=== PATIENT | female | born 1965 | race Caucasian/White ===

== ENCOUNTER → 2016-09-18 | Outpatient (CLI) | payer BC | LOC: MC.RAD 07:00 | DX: Z12.31 Encounter for screening mammogram for malignant neoplasm of breast (principal); Z80.3 Family history of malignant neoplasm of breast ==

== ENCOUNTER 2017-11-28 13:31 | Emergency (ER) | payer BC ==
[2017-11-28 13:35] VITALS: TEMP 98.2
[2017-11-28] MEDS ORDERED: ZOVIRAX400 MG PO (13:45)
[2017-11-28] MEDS ORDERED: MENOSTAR1 EACH (13:45)
[2017-11-28] MEDS ORDERED: SYNTHROID0.1 MG/TAB PO (13:45)
[2017-11-28] MEDS ORDERED: XANAX 1MG1 MG PO (13:46)
[2017-11-28] MEDS ORDERED: ESTRACE0.5 MG PO (13:46)
[2017-11-28 14:14] LABS: BASO # 0.1 (0.0-0.2); BASO % 0.5 % (0.0-2.0); EOS # 0.1 (0.0-0.7); EOS % 1.4 % (0-4.0); GRAN # 6.1 (1.4-6.5); GRAN % 63.3 % (42.2-75.2); HEMATOCRIT 41.9 % (37.0-47.0); HEMOGLOBIN 14.7 g/dl (12.5-16.0); LYMPH # 2.5 (1.2-3.4); LYMPH % 25.3 % (20.0-51.0); MEAN CELL VOLUME 88 fl (80.0-100.0); MEAN CORPUSCULAR HEMOGLOBIN 31 pg (27.0-31.0); MEAN CORPUSCULAR HGB CONC 35 g/dl (33.0-37.0); MEAN PLATELET VOLUME 9.5 fl (7.4-10.4); MONO # 0.9 (0.1-0.6); MONO % 9.2 % (1.7-9.3); PLATELET COUNT 316 K/mm3 (130-400); RED BLOOD COUNT 4.78 M/mm3 (4.10-5.30); REDCELL DISTRIBUTION WIDTH-CV 12.1 % (11.5-14.5)
[2017-11-28 14:25] LABS: BILIRUBIN,TOTAL 0.3 mg/dL (0.0-1.0); CALCIUM 9.3 mg/dL (8.4-10.2); CREATININE, serum 0.67 mg/dL (0.52-1.25); POTASSIUM 3.9 mmol/L (3.4-5.0); TOTAL PROTEIN 7.6 gm/dL (6.4-8.2)
[2017-11-28 14:55] LABS: THYROID STIMULATING HORMONE 0.799 uIU/mL (0.465-4.680)
[2017-11-28 15:43] VITALS: BP 124/88; PULSE 80
== END 2017-11-28 15:43 | disposition home or self-care (01) ==
LOC: COL.ER 13:31
PROVIDERS: Emergency Medicine
DX: I47.1 Supraventricular tachycardia (principal)
CPT/HCPCS: J0153; J7030

== ENCOUNTER → 2018-03-29 | Outpatient (CLI) | payer BC ==
[~2018-03-29] MED LIST: ESTRACE0.5 MG PO; MENOSTAR1 EACH; SYNTHROID0.1 MG/TAB PO; XANAX 1MG1 MG PO; ZOVIRAX400 MG PO
== END ==
LOC: MC.RAD 16:32
DX: Z12.31 Encounter for screening mammogram for malignant neoplasm of breast (principal)

== ENCOUNTER 2018-05-08 11:11 | Emergency (ER) | payer BC ==
[2018-05-08 11:11] VITALS: TEMP 98
[2018-05-08 11:27] LABS: BASO # 0.1 (0.0-0.2); BASO % 0.5 % (0.0-2.0); EOS # 0.3 (0.0-0.7); GRAN # 8.1 (1.4-6.5); GRAN % 63.6 % (42.2-75.2); HEMATOCRIT 44.4 % (37.0-47.0); HEMOGLOBIN 15.6 g/dl (12.5-16.0); LYMPH # 3.4 (1.2-3.4); MEAN CELL VOLUME 89 fl (80.0-100.0); MEAN CORPUSCULAR HEMOGLOBIN 31 pg (27.0-31.0); MEAN CORPUSCULAR HGB CONC 35 g/dl (33.0-37.0); MEAN PLATELET VOLUME 9.5 fl (7.4-10.4); MONO # 0.8 (0.1-0.6); MONO % 6.3 % (1.7-9.3); PLATELET COUNT 326 K/mm3 (130-400); RED BLOOD COUNT 4.97 M/mm3 (4.10-5.30); REDCELL DISTRIBUTION WIDTH-CV 12.7 % (11.5-14.5)
[2018-05-08 11:40] LABS: ALBUMIN 4.3 gm/dL (3.5-5.0); BILIRUBIN,TOTAL 0.3 mg/dL (0.0-1.0); CREATININE, serum 0.65 mg/dL (0.52-1.25); POTASSIUM 4.5 mmol/L (3.4-5.0); TOTAL PROTEIN 7.8 gm/dL (6.4-8.2)
[2018-05-08 11:52] LABS: TROPONIN-I 0.019 ng/mL (0.000-0.034)
[2018-05-08 12:10] LABS: TSH w REFLEX 1.64 uIU/mL (0.465-4.680)
[2018-05-08] MEDS ORDERED: CARDIZEM 30MG T30 MG PO (16:13)
[2018-05-08 16:42] VITALS: BP 136/75; PULSE 74
== END 2018-05-08 17:10 | disposition home or self-care (01) ==
LOC: COL.ER 11:11
PROVIDERS: Emergency Medicine
DX: I47.1 Supraventricular tachycardia (principal)
CPT/HCPCS: J0153; J7030

== ENCOUNTER → 2019-04-18 | Outpatient (CLI) | payer BC ==
[~2019-04-18] MED LIST changes: +CARDIZEM 30MG T30 MG PO
== END ==
LOC: MC.RAD 15:37
DX: Z12.31 Encounter for screening mammogram for malignant neoplasm of breast (principal)

== ENCOUNTER → 2020-04-08 | Outpatient (CLI) | payer BC | LOC: MC.RAD 08:10 | DX: Z12.31 Encounter for screening mammogram for malignant neoplasm of breast (principal) ==

== ENCOUNTER 2021-01-27 10:28 | Day surgery (SDC) | payer BC ==
[~2021-01-27] VITALS: Ht 162.6 cm; Wt 71.5 kg
[2021-01-27 11:18] VITALS: BP 142/95; PULSE 75; TEMP 98.1
[2021-01-27] MEDS ORDERED: NORCO 325 MG-51 TAB PO (14:37)
[2021-01-27 15:15] VITALS: BP 102/67; PULSE 72; TEMP 97.8
--- NOTE | 2021-01-27 15:15 | NUR ---
Patient arrives to [facility] [place] [facility] via cart, accompanied by WIREWORKER Echo. She is alert and oriented, lying in bed. PIV to TKO. Monitoring is applied - VSS and WNL on room air. She denies pain or nausea. She has 4 dry bandaids covering her surgical incisions. Abdomen is soft, tender. Lights are dimmed for comfort.
[2021-01-27 15:30] VITALS: BP 136/75; PULSE 72
--- NOTE | 2021-01-27 15:30 | NUR ---
VSS on room air. Her spouse is brought to the bedside. She denies any needs at this time. She is offered and receives water. She is sitting up in bed without difficulty.
[2021-01-27 15:45] VITALS: BP 153/92; PULSE 61
[2021-01-27 16:00] VITALS: BP 155/70; PULSE 67
--- NOTE | 2021-01-27 16:00 | NUR ---
VSS on room air. Patient ambulates to the restroom with steady gait, voids, and returns to room.
--- NOTE | 2021-01-27 16:30 | NUR ---
Patient has met discharge criteria. Discharge instructions are discussed. She denies any questions and verbalizes understanding. PIV is removed with catheter intact and hemostasis achieved. She changes to her clothing independently. She is escorted to the exit via wheelchair by staff. She is discharged to home with ride in private vehicle at 1630.
== END 2021-01-27 16:30 | disposition home or self-care (01) ==
LOC: SDCO 10:28
DX: Z12.11 Encounter for screening for malignant neoplasm of colon (principal); K43.6 Other and unspecified ventral hernia with obstruction, without gangrene; K57.30 Diverticulosis of large intestine without perforation or abscess without bleeding; E03.9 Hypothyroidism, unspecified; F41.9 Anxiety disorder, unspecified; Z90.89 Acquired absence of other organs; Z90.710 Acquired absence of both cervix and uterus; Z79.899 Other long term (current) drug therapy; Z79.890 Hormone replacement therapy; Z80.3 Family history of malignant neoplasm of breast; Z80.51 Family history of malignant neoplasm of kidney; Z82.49 Family history of ischemic heart disease and other diseases of the circulatory system; Z83.3 Family history of diabetes mellitus
CPT/HCPCS: C1781; J1100; J1885; J2250; J2405; J2704; J3010; J7120